=== PATIENT | female | born 1970 | race Hispanic/Latino ===

== ENCOUNTER 2019-06-30 12:44 | Inpatient (IN) | payer BC, MEDICAID ==
[~2019-06-30] VITALS: Ht 152.4 cm; Wt 69.5 kg
[~2019-06-30 12:44] MED LIST: ENOX40DI8 SQ; LISI10TA PO; METF850T PO
[2019-06-30 14:10] VITALS: BP 145/66
[2019-06-30 14:42] LABS: BASOPHILS % (AUTO) 0.3 % (0.0-5.0); EOSINOPHILS % (AUTO) 0.6 % (0.0-8.0); HEMATOCRIT 34.8 % (36-48); MEAN CORPUSCULAR HGB CONC 33.3 g/dL (32.0-36.0); MEAN CORPUSCULAR VOLUME 81.1 fL (79-99); MONOCYTES % (AUTO) 5.8 % (3.0-13.0); PLATELET COUNT (AUTO) 338 K/uL (130-400); RED BLOOD CELL COUNT(AUTO) 4.29 MIL/uL (4.00-5.50); RED CELL DISTRIBUTION WIDTH 12.6 % (11.0-15.5); WHITE BLOOD COUNT (AUTO) 12.3 K/uL (4.8-10.8)
[2019-06-30] MEDS ORDERED: DEXTROSE 50%-WATER 50 ML DISP.SYRIN IV PRN (14:45)
[2019-06-30] MEDS ORDERED: LACTULOSE 20 GM/30 ML UDCUP PO PRN (14:45)
[2019-06-30] MEDS ORDERED: MAG HYDROX/AL HYDROX/SIMETH ES 30 ML SUSP UDCUP PO PRN (14:45)
[2019-06-30] MEDS ORDERED: POTASSIUM CHLORIDE 20MEQ/100ML 100 ML IV PRN (14:45)
[2019-06-30] MEDS ORDERED: ONDANSETRON HCL 4 MG/2 ML VIAL IVP PRN (14:45)
[2019-06-30] MEDS ORDERED: DiphenhydrAMINE HCL 50 MG/ML VIAL IVP PRN (14:45)
[2019-06-30] MEDS ORDERED: POTASSIUM CHLORIDE 10% ELIXIR 20 MEQ/15 ML UDCUP PO PRN (14:45)
[2019-06-30] MEDS ORDERED: SODIUM CHLORIDE 0.9% 10 ML VIAL IVP SCH (14:45)
[2019-06-30] MEDS ORDERED: ZOLPIDEM TARTRATE 5 MG TAB PO PRN (14:45)
[2019-06-30] MEDS ORDERED: GUAIFENESIN SUGAR-FREE 100 MG/5 ML UDCUP PO PRN (14:45)
[2019-06-30] MEDS ORDERED: NITROGLYCERIN 0.4 MG SL TAB SL PRN (14:45)
[2019-06-30] MEDS ORDERED: GUAIFENESIN-DM 200/20 MG 10 ML PO PRN (14:45)
[2019-06-30] MEDS ORDERED: LIDOCAINE HCL-MPF 1% 2ML VIAL IJ PRN (14:45)
[2019-06-30] MEDS ORDERED: GLUCAGON 1MG KIT 1 MG ML IM PRN (14:45)
[2019-06-30] MEDS ORDERED: ACETAMINOPHEN 325 MG TAB PO PRN (14:45)
[2019-06-30] MEDS ORDERED: DIPHENHYDRAMINE HCL 25 MG CAPSULE PO PRN (14:45)
[2019-06-30 16:00] VITALS: BP 178/82
[2019-06-30] MEDS ORDERED: INSULIN R PO SSI SQ SCH (16:30)
--- NOTE | 2019-06-30 17:30 | NUR ---
REGULAR INSULIN Administered 18 units of subcutaneous regular insulin to left triceps due to blood sugar level 485mg/dL. Lab draw recheck 514mg/dL. Dr. Cortes made aware and sliding scale increased from SS # 1 to SS # 2 and administered at this time insulin regular per new scale # 2. Patient having dinner.
[2019-06-30 17:40] LABS: CREATININE 1.4 mg/dL (0.5-1.5); POTASSIUM 5.1 mmol/L (3.5-5.1)
[2019-06-30 20:00] VITALS: BP 162/83
--- NOTE | 2019-06-30 20:15 | NUR ---
AJ GEOPHYSICAL LABORATORY DIRECTOR AWARE OF PT'S STATUS AND MOST RECENT GLUCOSE
[2019-06-30] MEDS: INSULIN HUMULIN R 100 UNIT/ML 3ML SQ SCH (20:42)
[2019-06-30] MEDS ORDERED: ASPI-1026 PO (22:07)
[2019-06-30] MEDS ORDERED: metoprolol (22:07)
[2019-06-30] MEDS ORDERED: CLOP75TA14 PO (22:07)
[2019-06-30] MEDS ORDERED: ATOR40TA71 PO (22:07)
[2019-06-30] MEDS ORDERED: metoprolol er PO (22:07)
--- NOTE | 2019-06-30 22:10 | NUR ---
BELLHOP CAPTAIN, AJ AWARE THAT THERE ARE STILL NO ORDERS FOR ANTIBIOTICS PREVIOUSLY PLANEED BY DR. PEÑA ON HIS HISTORY AND PHYSIAL NOTE. AND THAT HOME MEDICATIONS ARE IN TO BE REVIEWED .
[2019-06-30] MEDS ORDERED: VANCOMYCIN PROTOCOL PER PHARMACY IV SCH (22:15)
[2019-06-30 23:47] VITALS: BP 131/72
[2019-07-01] VITALS (24 sets, daily range): BP systolic 103–173; BP diastolic 47–86
[2019-07-01] MEDS: ZOSYN 3.375GM+NS 50ML 50 ML IV SCH ×4 (01:39→17:30)
[2019-07-01 05:57] LABS: BASOPHILS % (AUTO) 0.3 % (0.0-5.0); EOSINOPHILS % (AUTO) 0.7 % (0.0-8.0); HEMATOCRIT 32.2 % (36-48); LYMPHOCYTES % (AUTO) 18.9 % (21.0-51.0); MEAN CORPUSCULAR HEMOGLOBIN 27.3 pg (27.0-33.0); MEAN CORPUSCULAR HGB CONC 33.5 g/dL (32.0-36.0); MEAN CORPUSCULAR VOLUME 81.5 fL (79-99); MONOCYTES % (AUTO) 6.5 % (3.0-13.0); NEUTROPHILS % (AUTO) 73.1 % (40.0-77.0); PLATELET COUNT (AUTO) 318 K/uL (130-400); RED BLOOD CELL COUNT(AUTO) 3.95 MIL/uL (4.00-5.50); RED CELL DISTRIBUTION WIDTH 12.6 % (11.0-15.5); WHITE BLOOD COUNT (AUTO) 15.3 K/uL (4.8-10.8)
[2019-07-01] MEDS: INSULIN HUMULIN R 100 UNIT/ML 3ML SQ SCH ×4 (06:10→20:38)
[2019-07-01 06:14] LABS: BILIRUBIN,TOTAL 0.3 mg/dL (0.2-1.0); CREATININE 1.2 mg/dL (0.5-1.5); TOTAL PROTEIN, SERUM 7.6 g/dL (6.0-8.3)
--- NOTE | 2019-07-01 07:00 | NUR ---
DR. RESENDIZ AWARE THAT PATIENT IS ON PLAVIX AT HOME AND ASPIRIN 325 MG DAILY AND LAST NIGHT DOSE PE PATIENT WAS 2/18 AM. STATED IT WAS OK TO PROCEED W SX.
[2019-07-01] MEDS: VANCOMYCIN 1GM+NS 250ML 250 ML IV SCH (07:15)
[2019-07-01] MEDS ORDERED: INSULIN GLARGINE 100 UNITS/ML 10 ML VIAL SQ SCH (09:00)
[2019-07-01] MEDS: ENOXAPARIN SODIUM 30 MG/0.3 ML SQ SCH (09:00)
--- NOTE | 2019-07-01 09:00 | NUR ---
DYSPHAGIA EVAL COMPLETED. -S/S OF ASPIRATION. RECOMMEND REGULAR TEXTURE, THIN LIQUIDS; PILLS WHOLE WITH LIQUIDS. Addendum: 07/01/19 at 1202 by GERMÁN APONTE, [facility] Amended: Links added.
--- NOTE | 2019-07-01 14:58 | NUR ---
INITIAL SW met with patient. Patient lives with spouse, Cristofer Correa, [phone]. No home services. DME: BPM, glucometer (uses insulin), shower chair, wheelchair, cane, standard walker. Patient is able to complete ADL's independently but does not drive. PCP is Dr. Hernandez Marquez. Pharmacy is [facility] located on [facility] in [place]. DCP is home. Addendum: 07/01/19 at 1500 by LUCIA ORDOÑEZ SS Amended: Links added.
[2019-07-01] MEDS ORDERED: DIPH,PERTUSS(ACELL),TET VAC/PF 0.5 ML VIAL IM ONE (15:30)
[2019-07-01] MEDS ORDERED: LIDOCAINE HCL 1% 20 ML VIAL ONE (16:52)
[2019-07-01] MEDS ORDERED: BUPIVACAINE/PF 0.5% 30ML VIAL ONE (16:52)
[2019-07-01] MEDS ORDERED: PROPOFOL 10 MG/ML 20ML VIAL IV ONE (17:47)
[2019-07-01] MEDS ORDERED: FENTANYL CITRATE PF 50 MCG/1 ML 2ML VIAL ONE (17:47)
[2019-07-01] MEDS ORDERED: MIDAZOLAM HCL 1 MG/ML 2ML VIAL ONE (17:47)
[2019-07-02] VITALS (7 sets, daily range): BP systolic 117–153; BP diastolic 54–79
[2019-07-02 05:08] LABS: BASOPHILS % (AUTO) 0.3 % (0.0-5.0); EOSINOPHILS % (AUTO) 0.8 % (0.0-8.0); HEMATOCRIT 34.5 % (36-48); LYMPHOCYTES % (AUTO) 21.7 % (21.0-51.0); MEAN CORPUSCULAR HEMOGLOBIN 27.3 pg (27.0-33.0); MEAN CORPUSCULAR HGB CONC 32.5 g/dL (32.0-36.0); MEAN CORPUSCULAR VOLUME 83.9 fL (79-99); MONOCYTES % (AUTO) 8.4 % (3.0-13.0); NEUTROPHILS % (AUTO) 68.4 % (40.0-77.0); PLATELET COUNT (AUTO) 297 K/uL (130-400); RED BLOOD CELL COUNT(AUTO) 4.11 MIL/uL (4.00-5.50); RED CELL DISTRIBUTION WIDTH 12.8 % (11.0-15.5); WHITE BLOOD COUNT (AUTO) 10.7 K/uL (4.8-10.8)
[2019-07-02 05:42] LABS: ALBUMIN 2.6 g/dL (3.5-5.0); BILIRUBIN,TOTAL 0.3 mg/dL (0.2-1.0); CREATININE 1.1 mg/dL (0.5-1.5); POTASSIUM 4.3 mmol/L (3.5-5.1); TOTAL PROTEIN, SERUM 6.9 g/dL (6.0-8.3)
[2019-07-02] MEDS: VANCOMYCIN 1GM+NS 250ML 250 ML IV SCH (06:44)
[2019-07-02] MEDS: INSULIN HUMULIN R 100 UNIT/ML 3ML SQ SCH (06:49)
[2019-07-02] MEDS ORDERED: INSULIN GLARGINE 100 UNITS/ML 10 ML VIAL SQ SCH (09:00)
[2019-07-02] MEDS: LISINOPRIL 10 MG TABLET PO SCH (09:05)
[2019-07-02] MEDS: METOPROLOL SUCCINATE 50 MG TAB.SR.24H PO SCH (09:05)
[2019-07-02] MEDS: ENOXAPARIN SODIUM 30 MG/0.3 ML SQ SCH (09:05)
[2019-07-02] MEDS: ASPIRIN 325 MG TABLET PO SCH (09:06)
[2019-07-02] MEDS: ZOSYN 3.375GM+NS 50ML 50 ML IV SCH ×3 (09:06→16:52)
[2019-07-02] MEDS: CLOPIDOGREL BISULFATE 75 MG TAB PO SCH (09:06)
[2019-07-02] MEDS: INSULIN GLARGINE 100 UNITS/ML 10 ML VIAL SQ SCH (09:15)
[2019-07-02] MEDS: INSULIN LISPRO 100 UNIT/ML 3ML SQ SCH ×5 (11:53→22:19)
--- NOTE | 2019-07-02 15:44 | NUR ---
SNF Referral MD order for SNF. SW met with patient and provided list of SNF's in network with her insurance. AMY/Choice signed for [facility], AMY/Choice placed in chart. Referral sent. Pending eval and insurance authorization. SW contacted Jillian Alfaro, [employer] Rough[employer] for [facility] and informed of referral.
[2019-07-02] MEDS: ACETAMINOPHEN 325 MG TAB PO PRN (22:11)
[2019-07-02] MEDS: ATORVASTATIN CALCIUM 40 MG TABLET PO SCH (22:11)
[2019-07-03] VITALS: BP 142/72
[2019-07-03] MEDS: ZOSYN 3.375GM+NS 50ML 50 ML IV SCH ×3 (01:36→18:04)
[2019-07-03 04:00] VITALS: BP 142/71
[2019-07-03 06:00] LABS: BASOPHILS % (AUTO) 0.1 % (0.0-5.0); EOSINOPHILS % (AUTO) 0.5 % (0.0-8.0); HEMATOCRIT 29.8 % (36-48); LYMPHOCYTES % (AUTO) 13.8 % (21.0-51.0); MEAN CORPUSCULAR HEMOGLOBIN 27.6 pg (27.0-33.0); MEAN CORPUSCULAR HGB CONC 32.9 g/dL (32.0-36.0); MEAN CORPUSCULAR VOLUME 83.9 fL (79-99); MONOCYTES % (AUTO) 10.7 % (3.0-13.0); NEUTROPHILS % (AUTO) 74.3 % (40.0-77.0); PLATELET COUNT (AUTO) 250 K/uL (130-400); RED BLOOD CELL COUNT(AUTO) 3.55 MIL/uL (4.00-5.50); RED CELL DISTRIBUTION WIDTH 12.9 % (11.0-15.5); WHITE BLOOD COUNT (AUTO) 14.9 K/uL (4.8-10.8)
[2019-07-03 06:11] LABS: ALBUMIN 2.5 g/dL (3.5-5.0); BILIRUBIN,TOTAL 0.6 mg/dL (0.2-1.0); CREATININE 1.2 mg/dL (0.5-1.5); CRP QUANTITATIVE 74.7 mg/L (0.00-9.0); MAGNESIUM 1.7 mg/dL (1.80-2.40); POTASSIUM 4.4 mmol/L (3.5-5.1); TOTAL PROTEIN, SERUM 6.6 g/dL (6.0-8.3)
[2019-07-03 06:28] LABS: HEMOGLOBIN A1C 15.3 % (4.0-6.0)
[2019-07-03] MEDS: INSULIN LISPRO 100 UNIT/ML 3ML SQ SCH ×6 (06:46→18:11)
[2019-07-03] MEDS: VANCOMYCIN 1GM+NS 250ML 250 ML IV SCH (06:47)
[2019-07-03 07:21] LABS: ERYTHROCYTE SEDIMENTATION RATE 76 MM/HR (0-30)
[2019-07-03 08:00] VITALS: BP 146/65
[2019-07-03] MEDS: ASPIRIN 325 MG TABLET PO SCH (08:38)
[2019-07-03] MEDS: LISINOPRIL 10 MG TABLET PO SCH (08:38)
[2019-07-03] MEDS: CLOPIDOGREL BISULFATE 75 MG TAB PO SCH (08:38)
[2019-07-03] MEDS: METOPROLOL SUCCINATE 50 MG TAB.SR.24H PO SCH (08:38)
[2019-07-03] MEDS: ENOXAPARIN SODIUM 30 MG/0.3 ML SQ SCH (08:39)
[2019-07-03] MEDS: INSULIN GLARGINE 100 UNITS/ML 10 ML VIAL SQ SCH (08:47)
--- NOTE | 2019-07-03 10:42 | NUR ---
CM Note: [employer]hell pending approval CM spoke to Jillian Marsh. Pt pending approval. Primary nurse aware. EMS arranged and faxed for today in case pt receive auth, primary nurse to call [facility]. CM to cont to follow up. Addendum: 07/03/19 at 1047 by NIKI SHAH LVN CM entered in error.
--- NOTE | 2019-07-03 10:46 | NUR ---
CM Note: Lashell pending approval CM spoke to Jillian w/[employer]. Pt pending approval at this time. Pt safe to transfe via transport van once approved. Primary nurse aware. CM to cont to follow up.
[2019-07-03 12:00] VITALS: BP 132/67
[2019-07-03 16:00] VITALS: BP 157/80
[2019-07-03 20:45] VITALS: BP 160/78
[2019-07-03] MEDS: ATORVASTATIN CALCIUM 40 MG TABLET PO SCH (22:03)
[2019-07-03] MEDS: INSULIN HUMULIN R 100 UNIT/ML 3ML SQ SCH (22:08)
[2019-07-04] VITALS (7 sets, daily range): BP systolic 116–150; BP diastolic 48–86
[2019-07-04 05:24] LABS: BASOPHILS % (AUTO) 0.2 % (0.0-5.0); EOSINOPHILS % (AUTO) 1.2 % (0.0-8.0); HEMATOCRIT 27.1 % (36-48); LYMPHOCYTES % (AUTO) 23.6 % (21.0-51.0); MEAN CORPUSCULAR HEMOGLOBIN 27.3 pg (27.0-33.0); MEAN CORPUSCULAR HGB CONC 32.5 g/dL (32.0-36.0); MEAN CORPUSCULAR VOLUME 84.2 fL (79-99); MONOCYTES % (AUTO) 10.4 % (3.0-13.0); NEUTROPHILS % (AUTO) 64.2 % (40.0-77.0); PLATELET COUNT (AUTO) 211 K/uL (130-400); RED BLOOD CELL COUNT(AUTO) 3.22 MIL/uL (4.00-5.50); RED CELL DISTRIBUTION WIDTH 12.8 % (11.0-15.5); WHITE BLOOD COUNT (AUTO) 13.3 K/uL (4.8-10.8)
[2019-07-04 05:35] LABS: CREATININE 1.1 mg/dL (0.5-1.5); POTASSIUM 3.6 mmol/L (3.5-5.1)
[2019-07-04] MEDS: INSULIN HUMULIN R 100 UNIT/ML 3ML SQ SCH ×4 (06:03→22:40)
[2019-07-04] MEDS: VANCOMYCIN 1GM+NS 250ML 250 ML IV SCH ×2 (06:15→22:37)
[2019-07-04] MEDS: INSULIN LISPRO 100 UNIT/ML 3ML SQ SCH ×3 (09:24→16:53)
[2019-07-04] MEDS: INSULIN GLARGINE 100 UNITS/ML 10 ML VIAL SQ SCH (09:25)
[2019-07-04] MEDS: METOPROLOL SUCCINATE 50 MG TAB.SR.24H PO SCH (09:26)
[2019-07-04] MEDS: CLOPIDOGREL BISULFATE 75 MG TAB PO SCH (09:26)
[2019-07-04] MEDS: ASPIRIN 325 MG TABLET PO SCH (09:26)
[2019-07-04] MEDS: ZOSYN 3.375GM+NS 50ML 50 ML IV SCH ×3 (09:35→16:51)
[2019-07-04] MEDS: LISINOPRIL 10 MG TABLET PO SCH (09:36)
[2019-07-04] MEDS: ENOXAPARIN SODIUM 30 MG/0.3 ML SQ SCH (16:57)
[2019-07-04] MEDS: ATORVASTATIN CALCIUM 40 MG TABLET PO SCH (22:37)
[2019-07-05 04:33] VITALS: BP 153/74
[2019-07-05] MEDS: INSULIN HUMULIN R 100 UNIT/ML 3ML SQ SCH ×4 (05:22→22:46)
[2019-07-05] MEDS: ZOSYN 3.375GM+NS 50ML 50 ML IV SCH ×2 (05:24→14:31)
[2019-07-05 05:52] LABS: HEMATOCRIT 27.2 % (36-48); MEAN CORPUSCULAR HEMOGLOBIN 27.4 pg (27.0-33.0); MEAN CORPUSCULAR HGB CONC 32.7 g/dL (32.0-36.0); MEAN CORPUSCULAR VOLUME 83.7 fL (79-99); PLATELET COUNT (AUTO) 241 K/uL (130-400); RED BLOOD CELL COUNT(AUTO) 3.25 MIL/uL (4.00-5.50); RED CELL DISTRIBUTION WIDTH 12.7 % (11.0-15.5); WHITE BLOOD COUNT (AUTO) 12.7 K/uL (4.8-10.8)
[2019-07-05 06:04] LABS: EOSINOPHILS % (MANUAL) 4 % (1-6); LYMPHOCYTES % (MANUAL) 20 % (22-44); MAN.DIFF COMMENT-IMPRESSION MANUAL DIFFERENTIAL; MONOCYTES % (MANUAL) 12 % (2-9); PLATELET MORPHOLOGY COMMENT ADEQUATE; SEGMENTED NEUTROPHILS % 64 % (40-70)
[2019-07-05 06:20] LABS: POTASSIUM 3.5 mmol/L (3.5-5.1)
[2019-07-05] MEDS: INSULIN LISPRO 100 UNIT/ML 3ML SQ SCH ×3 (07:30→17:14)
[2019-07-05 08:06] VITALS: BP 141/69
[2019-07-05] MEDS: VANCOMYCIN 1GM+NS 250ML 250 ML IV SCH ×2 (09:01→22:45)
[2019-07-05] MEDS: LISINOPRIL 10 MG TABLET PO SCH (09:02)
[2019-07-05] MEDS: ASPIRIN 325 MG TABLET PO SCH (09:02)
[2019-07-05] MEDS: CLOPIDOGREL BISULFATE 75 MG TAB PO SCH (09:02)
[2019-07-05] MEDS: METOPROLOL SUCCINATE 50 MG TAB.SR.24H PO SCH (09:03)
[2019-07-05] MEDS: ENOXAPARIN SODIUM 30 MG/0.3 ML SQ SCH (09:04)
[2019-07-05] MEDS: INSULIN GLARGINE 100 UNITS/ML 10 ML VIAL SQ SCH (09:08)
[2019-07-05 11:43] VITALS: BP 148/71
[2019-07-05 16:33] VITALS: BP 145/75
[2019-07-05 20:37] VITALS: BP 135/99
[2019-07-05] MEDS: ATORVASTATIN CALCIUM 40 MG TABLET PO SCH (22:45)
[2019-07-06] VITALS (7 sets, daily range): BP systolic 136–177; BP diastolic 62–80
[2019-07-06] MEDS: ZOSYN 3.375GM+NS 50ML 50 ML IV SCH ×4 (01:33→21:06)
[2019-07-06 05:37] LABS: BASOPHILS % (AUTO) 0.2 % (0.0-5.0); EOSINOPHILS % (AUTO) 2.1 % (0.0-8.0); HEMATOCRIT 26.3 % (36-48); LYMPHOCYTES % (AUTO) 21.4 % (21.0-51.0); MEAN CORPUSCULAR HEMOGLOBIN 27.3 pg (27.0-33.0); MEAN CORPUSCULAR HGB CONC 32.3 g/dL (32.0-36.0); MEAN CORPUSCULAR VOLUME 84.6 fL (79-99); NEUTROPHILS % (AUTO) 64.9 % (40.0-77.0); PLATELET COUNT (AUTO) 251 K/uL (130-400); RED BLOOD CELL COUNT(AUTO) 3.11 MIL/uL (4.00-5.50); RED CELL DISTRIBUTION WIDTH 12.8 % (11.0-15.5); WHITE BLOOD COUNT (AUTO) 12.3 K/uL (4.8-10.8)
[2019-07-06] MEDS: INSULIN HUMULIN R 100 UNIT/ML 3ML SQ SCH ×4 (05:40→21:07)
[2019-07-06 05:59] LABS: CREATININE 1.1 mg/dL (0.5-1.5); POTASSIUM 3.6 mmol/L (3.5-5.1)
[2019-07-06] MEDS: INSULIN LISPRO 100 UNIT/ML 3ML SQ SCH ×3 (07:25→16:57)
[2019-07-06] MEDS: VANCOMYCIN 1GM+NS 250ML 250 ML IV SCH ×3 (07:39→23:05)
[2019-07-06] MEDS: ASPIRIN 325 MG TABLET PO SCH (07:39)
[2019-07-06] MEDS: CLOPIDOGREL BISULFATE 75 MG TAB PO SCH (07:40)
[2019-07-06] MEDS: LISINOPRIL 10 MG TABLET PO SCH (07:40)
[2019-07-06] MEDS: METOPROLOL SUCCINATE 50 MG TAB.SR.24H PO SCH (07:40)
[2019-07-06] MEDS: ENOXAPARIN SODIUM 30 MG/0.3 ML SQ SCH (07:42)
[2019-07-06] MEDS: INSULIN GLARGINE 100 UNITS/ML 10 ML VIAL SQ SCH (07:44)
--- NOTE | 2019-07-06 08:00 | NUR ---
PT AAO X 3 REVIEW PLAN OF CARE / PT LEFT FOOT SURGERY ,DRSG DRY AND CLEAN,, HX OF HAVING A RT BELOW KNEE AMPUTATION . CALL LIGHT IN REACH.
--- NOTE | 2019-07-06 08:40 | NUR ---
VANCO TROUGH OF 22.9 FAX TO [facility] . OF RESULTS AND CALLED DEPT FOR CONFIRM FAX
--- NOTE | 2019-07-06 12:01 | NUR ---
cm note spoke to [facility] with [facility] states will call back. still pending approval
[2019-07-06] MEDS: ATORVASTATIN CALCIUM 40 MG TABLET PO SCH (21:09)
[2019-07-07 00:52] VITALS: BP 142/76
[2019-07-07 04:06] VITALS: BP 126/75
[2019-07-07 05:36] LABS: BASOPHILS % (AUTO) 0.3 % (0.0-5.0); EOSINOPHILS % (AUTO) 1.9 % (0.0-8.0); HEMATOCRIT 25.6 % (36-48); LYMPHOCYTES % (AUTO) 21.3 % (21.0-51.0); MEAN CORPUSCULAR HEMOGLOBIN 27.2 pg (27.0-33.0); MEAN CORPUSCULAR VOLUME 84.8 fL (79-99); MONOCYTES % (AUTO) 9.5 % (3.0-13.0); NEUTROPHILS % (AUTO) 66.7 % (40.0-77.0); PLATELET COUNT (AUTO) 259 K/uL (130-400); RED BLOOD CELL COUNT(AUTO) 3.02 MIL/uL (4.00-5.50); RED CELL DISTRIBUTION WIDTH 12.8 % (11.0-15.5); WHITE BLOOD COUNT (AUTO) 11.6 K/uL (4.8-10.8)
[2019-07-07 05:59] LABS: POTASSIUM 3.5 mmol/L (3.5-5.1)
[2019-07-07] MEDS: ZOSYN 3.375GM+NS 50ML 50 ML IV SCH ×2 (06:19→15:39)
[2019-07-07 06:39] LABS: CREATININE 1.1 mg/dL (0.5-1.5)
[2019-07-07] MEDS: INSULIN HUMULIN R 100 UNIT/ML 3ML SQ SCH ×4 (06:43→20:57)
[2019-07-07] MEDS ORDERED: COMPOUND IV REFRIGERATED 1 EACH IVSOLN MISC PRN (07:15)
[2019-07-07] MEDS: INSULIN LISPRO 100 UNIT/ML 3ML SQ SCH ×3 (07:30→17:00)
[2019-07-07 08:00] VITALS: BP 143/69
[2019-07-07] MEDS: ASPIRIN 325 MG TABLET PO SCH (10:04)
[2019-07-07] MEDS: METOPROLOL SUCCINATE 50 MG TAB.SR.24H PO SCH (10:04)
[2019-07-07] MEDS: CLOPIDOGREL BISULFATE 75 MG TAB PO SCH (10:04)
[2019-07-07] MEDS: LISINOPRIL 10 MG TABLET PO SCH (10:04)
[2019-07-07] MEDS: ENOXAPARIN SODIUM 30 MG/0.3 ML SQ SCH (10:05)
[2019-07-07] MEDS: INSULIN GLARGINE 100 UNITS/ML 10 ML VIAL SQ SCH (10:27)
[2019-07-07] MEDS: VANCOMYCIN 750MG + NS 250 ML IV SCH ×4 (10:33→22:07)
[2019-07-07 12:00] VITALS: BP 136/61
--- NOTE | 2019-07-07 13:56 | NUR ---
CM NOTE PER MARYJANE, DOES NOT HAVE ISO ROOM. INFORMED PATIENT, PER PATIENT, IS FROM [place] AND WOULD LIKE A SNF IN [place]. AMY VERBAL CONSENT FOR [facility]. CLINICALS AND PASRR FAXED TO [facility]. PER PLASTIC JIG AND FIXTURE BUILDER, RAMIRO REYEZ IS FACILITY ADMISSION COORDINATOR. LEFT MY NAME AND NUMBER AND ASKED FOR RAMIRO TO RETURN MY CALL FOR SNF REFERRAL. PENDING CALLBACK.
[2019-07-07 14:03] LABS: INR 1.02 (0.85-1.15); PROTHROMBIN TIME 10.7 SEC (9.6-11.6)
--- NOTE | 2019-07-07 15:31 | NUR ---
CM NOTE RAMIRO REYEZ CALLED AGAIN [phone] REGARDING PENDING REFERRAL FOR SNF. NO ANSWER, LEFT AGAIN. WILL FOLLOW UP ACCORDINGLY.
[2019-07-07] MEDS: POTASSIUM CHLORIDE 20 MEQ ERTAB PO PRN (15:38)
[2019-07-07 16:00] VITALS: BP 151/83
--- NOTE | 2019-07-07 16:55 | NUR ---
CM NOTE 3RD ATTEMPT FOR RAMIRO REYEZ, ADMISSION COORDINATOR AT [facility], NO ANSWER, VOICEMAIL LEFT REGARDING PENDING SNF REFERRAL FOR IV ABT AND PT. WILL FOLLOW UP ACCORDINGLY.
[2019-07-07] MEDS: CEFTRIAXONE SODIUM 1 GM IVP SCH (17:12)
[2019-07-07] MEDS: ATORVASTATIN CALCIUM 40 MG TABLET PO SCH (20:55)
[2019-07-07 21:24] VITALS: BP 156/74
[2019-07-08 00:49] VITALS: BP 144/67
[2019-07-08] MEDS: CEFTRIAXONE SODIUM 1 GM IVP SCH ×2 (04:00→17:19)
[2019-07-08 04:15] VITALS: BP 148/70
[2019-07-08] MEDS: INSULIN LISPRO 100 UNIT/ML 3ML SQ SCH ×3 (07:30→17:00)
[2019-07-08] MEDS: INSULIN HUMULIN R 100 UNIT/ML 3ML SQ SCH ×4 (07:30→21:00)
[2019-07-08 08:00] VITALS: BP 180/75
[2019-07-08] MEDS: INSULIN GLARGINE 100 UNITS/ML 10 ML VIAL SQ SCH (09:00)
--- NOTE | 2019-07-08 09:00 | NUR ---
CM NOTE RAMIRO REYEZ CALLED AT [phone], NO ANSWER, VOICEMAIL LEFT REGARDING PENDING SNF REFERRAL. WILL FOLLOW UP ACCORDINGLY.
[2019-07-08] MEDS: ASPIRIN 325 MG TABLET PO SCH (11:25)
[2019-07-08] MEDS: LISINOPRIL 10 MG TABLET PO SCH (11:25)
[2019-07-08] MEDS: CLOPIDOGREL BISULFATE 75 MG TAB PO SCH (11:25)
[2019-07-08] MEDS: METOPROLOL SUCCINATE 50 MG TAB.SR.24H PO SCH (11:26)
[2019-07-08] MEDS: ENOXAPARIN SODIUM 30 MG/0.3 ML SQ SCH (11:28)
[2019-07-08 12:00] VITALS: BP 178/81
--- NOTE | 2019-07-08 12:10 | NUR ---
CM NOTE 5TH ATTEMPT AT SPEAKING WITH ADMISSION COORDINATOR. ASKED TO SPEAK TO ADMINISTRATION, PER PRECISION LENS POLISHER, OUT TO LUNCH. INFORMATION GIVEN TO CALL BACK. WILL FOLLOW UP ACCORDINGLY.
[2019-07-08 16:00] VITALS: BP 166/77
--- NOTE | 2019-07-08 16:44 | NUR ---
CM NOTE [facility] ADMISSION COORDINATOR, CALLED BACK. PER FRANCISCO, WILL CALL ME BACK WITH CORRECT FAX NUMBER TO FAX CLINICALS. PER REP, CLINICALS FAXED YESTERDAY NOT RECEIVED.
--- NOTE | 2019-07-08 17:06 | NUR ---
CM NOTE CLINICALS REFAXED TO , CORRECT FAX NUMBER PER FRANCISCO. PENDING CONFIRMATION
[2019-07-08 20:00] VITALS: BP 162/77
[2019-07-08] MEDS: VANCOMYCIN 1GM+NS 250ML 250 ML IV SCH (21:40)
[2019-07-08] MEDS: ATORVASTATIN CALCIUM 40 MG TABLET PO SCH (21:40)
[2019-07-08] MEDS: CLONIDINE HCL 0.1 MG TABLET PO PRN (21:56)
[2019-07-09] VITALS (7 sets, daily range): BP systolic 130–155; BP diastolic 61–75
[2019-07-09] MEDS: CEFTRIAXONE SODIUM 1 GM IVP SCH ×2 (05:10→16:38)
[2019-07-09 05:14] LABS: BASOPHILS % (AUTO) 0.4 % (0.0-5.0); EOSINOPHILS % (AUTO) 1.6 % (0.0-8.0); HEMATOCRIT 26.7 % (36-48); LYMPHOCYTES % (AUTO) 19.7 % (21.0-51.0); MEAN CORPUSCULAR HEMOGLOBIN 27.1 pg (27.0-33.0); MEAN CORPUSCULAR HGB CONC 31.5 g/dL (32.0-36.0); MEAN CORPUSCULAR VOLUME 86.1 fL (79-99); MONOCYTES % (AUTO) 8.8 % (3.0-13.0); NEUTROPHILS % (AUTO) 69.2 % (40.0-77.0); PLATELET COUNT (AUTO) 261 K/uL (130-400); RED CELL DISTRIBUTION WIDTH 12.8 % (11.0-15.5); WHITE BLOOD COUNT (AUTO) 10.4 K/uL (4.8-10.8)
[2019-07-09 05:28] LABS: CREATININE 1.2 mg/dL (0.5-1.5); MAGNESIUM 1.7 mg/dL (1.80-2.40); POTASSIUM 3.8 mmol/L (3.5-5.1)
[2019-07-09] MEDS: INSULIN LISPRO 100 UNIT/ML 3ML SQ SCH ×3 (06:58→16:36)
[2019-07-09] MEDS: INSULIN HUMULIN R 100 UNIT/ML 3ML SQ SCH ×4 (07:02→19:43)
[2019-07-09] MEDS: INSULIN GLARGINE 100 UNITS/ML 10 ML VIAL SQ SCH (09:00)
--- NOTE | 2019-07-09 10:14 | NUR ---
DASHAWN NOTE ATTEMPTED TO CALL FRANCISCO [phone] REGARDING SNF REFERRAL, NO ANSWER. VOICEMAIL LEFT, PENDING CALL BACK. WILL FOLLOW UP ACCORDINGLY.
[2019-07-09] MEDS: ASPIRIN 325 MG TABLET PO SCH (12:11)
[2019-07-09] MEDS: CLOPIDOGREL BISULFATE 75 MG TAB PO SCH (12:11)
[2019-07-09] MEDS: LISINOPRIL 10 MG TABLET PO SCH (12:12)
[2019-07-09] MEDS: METOPROLOL SUCCINATE 50 MG TAB.SR.24H PO SCH (12:12)
[2019-07-09] MEDS: ENOXAPARIN SODIUM 30 MG/0.3 ML SQ SCH (12:15)
--- NOTE | 2019-07-09 13:13 | NUR ---
CM NOTE PER SHARMAINE GIL DRIFTMAN, CLINICALS AND PASRR RECEIVED AND CLINICALS SUBMITTED TO INSURANCE, PENDING AUTHORIZATION. WILL FOLLOW UP ACCORDINGLY.
--- NOTE | 2019-07-09 18:01 | NUR ---
Nutrition Intervention: Nutrition screen based on LOS x 9 days. Pt. S/P Tracy. left heel/left foot great toe amputation(07/01/2019). Pt. on 60gm CCD diet with good p.o. intake, as per pt. Labs reviewed(Alb 2.5, BG 268, HgbA1c 15.3%). SR-20, left heel ulcer. Pt. with 1+ edema to LLE. LBM: 07/09/2019. BMI: 31.7, Obesity Grade 1. Pt. educated on Diabetic diet and provided with education material. Pt. verbalized understanding. Recommendations: 1) Rec. 60gm CCD Heart Healthy diet. 2) Rec. 30ml ProMod BID with B'fast and dinner meals. 3) Rec. 500mg Vit C BID and 220mg Zn sulfate QD to help promote wound healing. 4) Diabetic diet education given to patient. 5) Continue to monitor pt's nutritional status. 6) Consult RD as nutrition concerns arise. Addendum: 07/09/19 at [address] Amended: Links added.
[2019-07-09] MEDS: ATORVASTATIN CALCIUM 40 MG TABLET PO SCH (19:36)
[2019-07-09] MEDS: VANCOMYCIN 1GM+NS 250ML 250 ML IV SCH (19:42)
[2019-07-10 03:00] VITALS: BP 147/72
[2019-07-10] MEDS: CEFTRIAXONE SODIUM 1 GM IVP SCH ×2 (03:09→15:51)
[2019-07-10] MEDS: INSULIN LISPRO 100 UNIT/ML 3ML SQ SCH ×2 (05:45→12:15)
[2019-07-10] MEDS: INSULIN HUMULIN R 100 UNIT/ML 3ML SQ SCH ×3 (05:45→20:47)
[2019-07-10 07:57] VITALS: BP 190/80
[2019-07-10] MEDS: ASPIRIN 325 MG TABLET PO SCH (07:59)
[2019-07-10] MEDS: METOPROLOL SUCCINATE 50 MG TAB.SR.24H PO SCH (07:59)
[2019-07-10] MEDS: LISINOPRIL 10 MG TABLET PO SCH (08:00)
[2019-07-10] MEDS: CLOPIDOGREL BISULFATE 75 MG TAB PO SCH (08:00)
--- NOTE | 2019-07-10 08:00 | NUR ---
AM SHIFT ASSESSMENT, SITTING UP IN BED. NO C/O.
[2019-07-10] MEDS: ENOXAPARIN SODIUM 30 MG/0.3 ML SQ SCH (08:02)
[2019-07-10] MEDS: INSULIN GLARGINE 100 UNITS/ML 10 ML VIAL SQ SCH (08:10)
--- NOTE | 2019-07-10 10:00 | NUR ---
CM NOTE PENDING DR. RESENDIZ TO [facility]. CALLED DR. RESENDIZ TO SEE IF PHYSICAL THERAPY IS APPROPRIATE AND IF ABLE TO BEAR WEIGHT. NO ANSWER, MESSAGE LEFT. PENDING CALL BACK. DELEGATED TO GEE CAN, TO INQUIRE ABOUT PT AND WEIGHT BEARING STATUS ON PATIENT FROM DR. RESENDIZ. Addendum: 07/10/19 at 1744 by MONSERRAT PORTILLO RN CM ENTERED IN ERROR.
[2019-07-10 12:00] VITALS: BP 173/75
--- NOTE | 2019-07-10 15:00 | NUR ---
VISITING WITH FAMILY/FRIENDS, NO NEEDS ADDRESSED AT THIS TIME. DRESSING TO LT. FOOT INTACT, CLEAN AND DRY.
[2019-07-10 16:00] VITALS: BP 171/67
--- NOTE | 2019-07-10 17:00 | NUR ---
WILL BE GOING TO [facility] [place] [facility]CE READY TO DISCHARGED.
[2019-07-10] MEDS: VANCOMYCIN 1GM+NS 250ML 250 ML IV SCH (19:32)
[2019-07-10] MEDS: ATORVASTATIN CALCIUM 40 MG TABLET PO SCH (19:32)
[2019-07-10 20:58] VITALS: BP 164/73
[2019-07-11] VITALS: BP 155/70
[2019-07-11] MEDS: CEFTRIAXONE SODIUM 1 GM IVP SCH ×2 (03:53→16:46)
[2019-07-11 04:22] VITALS: BP 161/70
[2019-07-11] MEDS: INSULIN LISPRO 100 UNIT/ML 3ML SQ SCH ×3 (05:55→18:13)
[2019-07-11] MEDS: INSULIN HUMULIN R 100 UNIT/ML 3ML SQ SCH ×4 (05:56→20:22)
[2019-07-11 06:13] LABS: BASOPHILS % (AUTO) 0.2 % (0.0-5.0); EOSINOPHILS % (AUTO) 1.6 % (0.0-8.0); HEMATOCRIT 25.9 % (36-48); LYMPHOCYTES % (AUTO) 16.2 % (21.0-51.0); MEAN CORPUSCULAR HEMOGLOBIN 27.6 pg (27.0-33.0); MEAN CORPUSCULAR HGB CONC 32.4 g/dL (32.0-36.0); MEAN CORPUSCULAR VOLUME 85.2 fL (79-99); MONOCYTES % (AUTO) 8.8 % (3.0-13.0); NEUTROPHILS % (AUTO) 72.8 % (40.0-77.0); PLATELET COUNT (AUTO) 279 K/uL (130-400); RED BLOOD CELL COUNT(AUTO) 3.04 MIL/uL (4.00-5.50); RED CELL DISTRIBUTION WIDTH 12.9 % (11.0-15.5); WHITE BLOOD COUNT (AUTO) 10.5 K/uL (4.8-10.8)
[2019-07-11 06:22] LABS: MAGNESIUM 1.6 mg/dL (1.80-2.40); POTASSIUM 3.3 mmol/L (3.5-5.1)
[2019-07-11] MEDS: POTASSIUM CHLORIDE 20 MEQ ERTAB PO PRN ×2 (06:42→12:41)
[2019-07-11 08:00] VITALS: BP 163/80
[2019-07-11] MEDS ORDERED: MAGNESIUM 2GM PREMIX 50ML 50 ML IV SCH (08:00)
--- NOTE | 2019-07-11 09:35 | NUR ---
Jenks Glenshaw Spoke gurpreet Crespo this am to f/u on ins auth for admission. She mentions that it is still pending at this time. CM to f.u on Saturday.
[2019-07-11] MEDS: LISINOPRIL 10 MG TABLET PO SCH (10:10)
[2019-07-11] MEDS: ASPIRIN 325 MG TABLET PO SCH (10:10)
[2019-07-11] MEDS: METOPROLOL SUCCINATE 50 MG TAB.SR.24H PO SCH (10:11)
[2019-07-11] MEDS: ENOXAPARIN SODIUM 30 MG/0.3 ML SQ SCH (10:13)
[2019-07-11] MEDS: INSULIN GLARGINE 100 UNITS/ML 10 ML VIAL SQ SCH (10:14)
[2019-07-11] MEDS: CLOPIDOGREL BISULFATE 75 MG TAB PO SCH (10:16)
[2019-07-11 12:00] VITALS: BP 152/68
[2019-07-11 16:00] VITALS: BP 150/68
[2019-07-11] MEDS: ATORVASTATIN CALCIUM 40 MG TABLET PO SCH (19:45)
[2019-07-11 20:00] VITALS: BP 163/79
[2019-07-11] MEDS: VANCOMYCIN 1GM+NS 250ML 250 ML IV SCH (21:17)
[2019-07-12] VITALS: BP 147/73
[2019-07-12] MEDS: CEFTRIAXONE SODIUM 1 GM IVP SCH ×2 (03:52→15:51)
[2019-07-12 04:00] VITALS: BP 151/80
[2019-07-12] MEDS: INSULIN HUMULIN R 100 UNIT/ML 3ML SQ SCH ×4 (05:24→20:43)
[2019-07-12 06:46] LABS: MAGNESIUM 1.8 mg/dL (1.80-2.40); POTASSIUM 3.6 mmol/L (3.5-5.1)
[2019-07-12 08:00] VITALS: BP 158/72
[2019-07-12] MEDS: METOPROLOL SUCCINATE 50 MG TAB.SR.24H PO SCH (08:52)
[2019-07-12] MEDS: ASPIRIN 325 MG TABLET PO SCH (08:52)
[2019-07-12] MEDS: LISINOPRIL 10 MG TABLET PO SCH (08:53)
[2019-07-12] MEDS: CLOPIDOGREL BISULFATE 75 MG TAB PO SCH (08:53)
[2019-07-12] MEDS: ENOXAPARIN SODIUM 30 MG/0.3 ML SQ SCH (08:54)
[2019-07-12] MEDS: INSULIN LISPRO 100 UNIT/ML 3ML SQ SCH ×3 (08:55→17:02)
[2019-07-12] MEDS: INSULIN GLARGINE 100 UNITS/ML 10 ML VIAL SQ SCH (08:55)
[2019-07-12 11:26] VITALS: BP 179/90
[2019-07-12] MEDS: VANCOMYCIN 1GM+NS 250ML 250 ML IV SCH (15:51)
[2019-07-12 16:00] VITALS: BP 133/67
--- NOTE | 2019-07-12 19:00 | NUR ---
ASSUMED CARE Received report from Dustin Perry,Dressing to left foot dry and intact.Denies pain or discomfort.
[2019-07-12 19:30] VITALS: BP 158/76
[2019-07-12] MEDS: ATORVASTATIN CALCIUM 40 MG TABLET PO SCH (20:36)
[2019-07-12] MEDS: POTASSIUM CHLORIDE 20 MEQ ERTAB PO PRN (20:42)
[2019-07-13] VITALS (8 sets, daily range): BP systolic 147–180; BP diastolic 68–89
[2019-07-13] MEDS: CEFTRIAXONE SODIUM 1 GM IVP SCH ×2 (03:09→17:08)
[2019-07-13] MEDS: CLONIDINE HCL 0.1 MG TABLET PO PRN (03:45)
--- NOTE | 2019-07-13 03:47 | NUR ---
PRN Clonidine given for sys bp >160.
[2019-07-13] MEDS: INSULIN HUMULIN R 100 UNIT/ML 3ML SQ SCH ×4 (05:44→20:44)
[2019-07-13] MEDS: INSULIN LISPRO 100 UNIT/ML 3ML SQ SCH ×3 (06:27→17:09)
[2019-07-13] MEDS: AMLODIPINE BESYLATE 2.5 MG TAB PO SCH (08:44)
[2019-07-13] MEDS: CLOPIDOGREL BISULFATE 75 MG TAB PO SCH (08:44)
[2019-07-13] MEDS: METOPROLOL SUCCINATE 50 MG TAB.SR.24H PO SCH (08:44)
[2019-07-13] MEDS: ASPIRIN 325 MG TABLET PO SCH (08:44)
[2019-07-13] MEDS: LISINOPRIL 10 MG TABLET PO SCH (08:45)
[2019-07-13] MEDS: ENOXAPARIN SODIUM 30 MG/0.3 ML SQ SCH (08:45)
[2019-07-13] MEDS: INSULIN GLARGINE 100 UNITS/ML 10 ML VIAL SQ SCH (08:56)
[2019-07-13] MEDS ORDERED: PHARMACY COMMUNICATION MISC SCH (09:00)
[2019-07-13] MEDS: HONEY 1 APPL/ML TUBE TP SCH (09:00)
--- NOTE | 2019-07-13 10:35 | NUR ---
PT NOTE: PATIENT PERFORMED SUPINE EX'S IN ALL PLANES WITH EMPHASIS ON TRICEPS STRENGTHENING AND RESIDUAL LIMB STRENGTHENING. THIS IS IN ORDER TO PROMOTE IMPROVED BED MOBILITY AND POTENTIAL FOR SLIDING BOARD TRANSFERS OOB TO WHEEL CHAIR. PATIENT HAS BEEN TOLERATING SITTING AT EOB X10MIN + UE/LE STRENGTHENING. PATIENT WILL BENEFIT FROM CONTINUED PT TREATMENT PRIOR TO D/C HOME TO PROMOTE INCREASED STRENGTH AND FUNCTIONAL TRANSFERS OOB. Addendum: 07/13/19 at 1450 by ALMA NAVARRO PT Amended: Links added.
--- NOTE | 2019-07-13 11:00 | NUR ---
CM NOTE PER FRANCISCO [facility], PATIENT NOT IN NETWORK FOR SNF.
[2019-07-13] MEDS: VANCOMYCIN 1GM+NS 250ML 250 ML IV SCH (12:34)
--- NOTE | 2019-07-13 15:33 | NUR ---
CM NOTE NEW REFERRAL FOR INPATIENT REHAB OR CHOICE. AMY SIGNED FOR [facility]. CLINICALS FAXED AND RECEIVED. MIRANDA, PATIENT REP, HERE TO EVALUATE PATIENT. PER MIRANDA, WILL SUBMIT TO INSURANCE TODAY. WILL FOLLOW UP ACCORDINGLY.
[2019-07-13] MEDS: ATORVASTATIN CALCIUM 40 MG TABLET PO SCH (20:42)
--- NOTE | 2019-07-13 23:30 | NUR ---
WOUND CARE Lt heel ulcer cleansed with ns,medihoney applied,covered with vaseline gauze and 4x4 gauze,wound appears pinkish with yellow slough,measures approx 5x6 cm.pt tyrell well.Left foot Tma painted with betadine covered with 4x4 gauze,secured with kerlix and diana bandage.Wound apprears clean and dry well approximated.Pt tyrell procedure well.Dr Sánchez came and said to continue with current wound care.
[2019-07-14] MEDS: CEFTRIAXONE SODIUM 1 GM IVP SCH ×2 (03:10→19:21)
[2019-07-14 04:10] VITALS: BP 165/78
[2019-07-14] MEDS: INSULIN HUMULIN R 100 UNIT/ML 3ML SQ SCH ×4 (06:05→20:50)
[2019-07-14] MEDS: VANCOMYCIN 1GM+NS 250ML 250 ML IV SCH (06:13)
[2019-07-14] MEDS: INSULIN LISPRO 100 UNIT/ML 3ML SQ SCH ×3 (06:22→17:00)
[2019-07-14 07:44] VITALS: BP 180/75
[2019-07-14] MEDS: ENOXAPARIN SODIUM 30 MG/0.3 ML SQ SCH (10:00)
--- NOTE | 2019-07-14 10:00 | NUR ---
CM NOTE REQUEST FOR EMS TRANSFER FAXED AND RECEIVED, PENDING EMS AUTHORIZATION FOR TRANSPORTATION TO [facility] IF APPROVED, PENDING AUTHORIZATION ITSELF. STR MULTICULTURAL INTERNSHIP IN ROOM WITH PATIENT, STATES HE WILL CALL ME WHEN AUTHORIZATION RECEIVED.
[2019-07-14] MEDS: CLOPIDOGREL BISULFATE 75 MG TAB PO SCH (10:01)
[2019-07-14] MEDS: METOPROLOL SUCCINATE 50 MG TAB.SR.24H PO SCH (10:01)
[2019-07-14] MEDS: ASPIRIN 325 MG TABLET PO SCH (10:01)
[2019-07-14] MEDS: AMLODIPINE BESYLATE 2.5 MG TAB PO SCH (10:01)
[2019-07-14] MEDS: LISINOPRIL 10 MG TABLET PO SCH (10:02)
[2019-07-14] MEDS: INSULIN GLARGINE 100 UNITS/ML 10 ML VIAL SQ SCH (10:03)
[2019-07-14] MEDS: HONEY 1 APPL/ML TUBE TP SCH (10:03)
[2019-07-14 11:14] VITALS: BP 156/74
--- NOTE | 2019-07-14 14:20 | NUR ---
PT NOTE: PATIENT PRESENTS WITH IMPROVED TOLERANCE FOR PT TX TODAY VS YESTERDAY. PATIENT WAS ABLE TO PERFORM SCOOTING AT EOB /C B UE'S TO HOB AND BACK WITH MINIMAL ASSIST AND CUEING. PATIENT PRESENTS WITH IMPROVED UE STRENGTH NOTED BY ABILITY TO PERFORM SCOOTING AT BEDSIDE. PATIENT WILL BENEFIT FROM CONTINUED PT TX TO PROMOTE STRENGTHENING FOR SAFE AND INDEPENDENT TRANSFERS OOB /C SLIDING BOARD PRIOR TO D/C HOME. Addendum: 07/14/19 at 1436 by ALMA NAVARRO PT Amended: Links added.
[2019-07-14 15:40] VITALS: BP 175/70
[2019-07-14 19:12] VITALS: BP 149/73
[2019-07-14] MEDS: ATORVASTATIN CALCIUM 40 MG TABLET PO SCH (20:02)
--- NOTE | 2019-07-14 23:04 | NUR ---
MD Dr RESENDIZ is here to change dressing.
[2019-07-14 23:18] VITALS: BP 144/73
[2019-07-15] VITALS (7 sets, daily range): BP systolic 142–183; BP diastolic 65–103
[2019-07-15] MEDS: VANCOMYCIN 1GM+NS 250ML 250 ML IV SCH ×2 (00:08→19:43)
[2019-07-15] MEDS: CEFTRIAXONE SODIUM 1 GM IVP SCH ×2 (04:10→17:23)
[2019-07-15] MEDS: ACETAMINOPHEN 325 MG TAB PO PRN (04:11)
[2019-07-15] MEDS: CLONIDINE HCL 0.1 MG TABLET PO PRN (04:11)
--- NOTE | 2019-07-15 04:11 | NUR ---
BP Clonidine given for bp 183/103.
--- NOTE | 2019-07-15 05:21 | NUR ---
MED EFFECT Bp rechecked 142/74.
[2019-07-15] MEDS: INSULIN HUMULIN R 100 UNIT/ML 3ML SQ SCH ×4 (05:35→20:49)
[2019-07-15] MEDS: INSULIN LISPRO 100 UNIT/ML 3ML SQ SCH ×3 (06:55→17:00)
[2019-07-15] MEDS: HONEY 1 APPL/ML TUBE TP SCH (09:00)
[2019-07-15] MEDS: METOPROLOL SUCCINATE 50 MG TAB.SR.24H PO SCH (09:12)
[2019-07-15] MEDS: CLOPIDOGREL BISULFATE 75 MG TAB PO SCH (09:13)
[2019-07-15] MEDS: LISINOPRIL 10 MG TABLET PO SCH (09:13)
[2019-07-15] MEDS: ASPIRIN 325 MG TABLET PO SCH (09:13)
[2019-07-15] MEDS: AMLODIPINE BESYLATE 2.5 MG TAB PO SCH (09:13)
[2019-07-15] MEDS: ENOXAPARIN SODIUM 30 MG/0.3 ML SQ SCH (09:14)
[2019-07-15] MEDS: INSULIN GLARGINE 100 UNITS/ML 10 ML VIAL SQ SCH (09:20)
--- NOTE | 2019-07-15 10:14 | NUR ---
CM NOTE PER GWEN AT [facility], PENDING AUTHORIZATION FOR INPATIENT REHAB. WILL FOLLOW UP ACCORDINGLY.
--- NOTE | 2019-07-15 14:32 | NUR ---
PT NOTE: PATIENT DONNED AND DOFFED RLE PROSTHETIC LIMB WITH SBA AND WAS ABLE TO PERFORM STAND PIVOT TRANSFER FROM BED TO CHAIR MOD ASSISTX2 WITH NWB TO LLE. THIS IS A POSITIVE DEVELOPMENT, PATIENT WILL BENEFIT FROM CONTINUED PT TX TO FURTHER PROGRESS STRENGTH AND PROMOTE FUNCTIONAL INDEPENDENCE PRIOR TO D/C HOME. Addendum: 07/15/19 at 1540 by ALMA NAVARRO PT Amended: Links added.
--- NOTE | 2019-07-15 19:02 | NUR ---
VANCO TROUGH . FAX TO [facility], RESULT OF 17.2 PENDING, , [facility] .RESPOND
[2019-07-15] MEDS: ATORVASTATIN CALCIUM 40 MG TABLET PO SCH (20:43)
[2019-07-16 03:00] VITALS: BP 155/98
[2019-07-16] MEDS: CEFTRIAXONE SODIUM 1 GM IVP SCH ×2 (04:47→17:23)
[2019-07-16 06:03] LABS: HEMATOCRIT 29.5 % (36-48); MEAN CORPUSCULAR HEMOGLOBIN 26.6 pg (27.0-33.0); MEAN CORPUSCULAR HGB CONC 30.8 g/dL (32.0-36.0); MEAN CORPUSCULAR VOLUME 86.3 fL (79-99); PLATELET COUNT (AUTO) 328 K/uL (130-400); RED BLOOD CELL COUNT(AUTO) 3.42 MIL/uL (4.00-5.50); RED CELL DISTRIBUTION WIDTH 13.5 % (11.0-15.5); WHITE BLOOD COUNT (AUTO) 10.7 K/uL (4.8-10.8)
[2019-07-16 06:09] LABS: POTASSIUM 3.6 mmol/L (3.5-5.1)
[2019-07-16] MEDS: INSULIN HUMULIN R 100 UNIT/ML 3ML SQ SCH ×4 (06:26→21:00)
[2019-07-16] MEDS: INSULIN LISPRO 100 UNIT/ML 3ML SQ SCH ×3 (06:42→17:27)
[2019-07-16 07:55] VITALS: BP 132/60
[2019-07-16] MEDS: LISINOPRIL 10 MG TABLET PO SCH (07:57)
[2019-07-16] MEDS: AMLODIPINE BESYLATE 2.5 MG TAB PO SCH (07:57)
[2019-07-16] MEDS: CLOPIDOGREL BISULFATE 75 MG TAB PO SCH (07:57)
[2019-07-16] MEDS: ASPIRIN 325 MG TABLET PO SCH (07:57)
[2019-07-16] MEDS: METOPROLOL SUCCINATE 50 MG TAB.SR.24H PO SCH (07:58)
[2019-07-16] MEDS: ENOXAPARIN SODIUM 30 MG/0.3 ML SQ SCH (07:58)
--- NOTE | 2019-07-16 08:00 | NUR ---
PT AAO X3 REVIEW PLAN OF CARE, LIMITED EYE SIGHT CALL LIGHT IN REACH,, OFFER NO C/O OF PAIN , PER PT . INFORMATION . DR RESENDIZ CAME IN LAST NITE AND CHANGED HER DRSG . . REVIEW THAT WOUND , SURGERY SITE PICTURE NEED TO BE DONE , WHEN HE COME IN .TO PUT THE CALL LIGHT FOR ASSESSMENT . OF INCISIONAL SITE PICTURES , LEFT GREAT TOE AND PORTIO OF HER METATARAL AND DEBRIDEMENT OF HER LT HEEL HX OF RIGHT LEG BELOW KNEE AMPUTATION
[2019-07-16] MEDS: INSULIN GLARGINE 100 UNITS/ML 10 ML VIAL SQ SCH (08:14)
[2019-07-16] MEDS: HONEY 1 APPL/ML TUBE TP SCH (09:00)
[2019-07-16 11:15] VITALS: BP 171/71
--- NOTE | 2019-07-16 11:55 | NUR ---
Nutrition Follow-up: Pt. on 60gm CCD Gen. Heart Healthy diet, 30ml ProMod BID. Pt. reports good p.o. intake. Labs reviewed(Alb 2.5, BG 123). LBM: 07/15/2019. SR-17, elastic. Recommendations: 1) Continue current diet. 2) Continue to monitor pt's nutritional status. 3) Consult RD as nutrition concerns arise. Addendum: 07/16/19 at [address] Amended: Links added.
[2019-07-16] MEDS: VANCOMYCIN 1GM+NS 250ML 250 ML IV SCH (12:19)
[2019-07-16] MEDS: CLONIDINE HCL 0.1 MG TABLET PO PRN (12:22)
[2019-07-16 16:35] VITALS: BP 144/74
[2019-07-16 20:00] VITALS: BP 148/75
[2019-07-16] MEDS: ATORVASTATIN CALCIUM 40 MG TABLET PO SCH (20:15)
[2019-07-17] VITALS (9 sets, daily range): BP systolic 130–183; BP diastolic 58–83
[2019-07-17] MEDS: CEFTRIAXONE SODIUM 1 GM IVP SCH ×2 (03:59→16:37)
[2019-07-17] MEDS: ACETAMINOPHEN 325 MG TAB PO PRN (03:59)
[2019-07-17] MEDS: CLONIDINE HCL 0.1 MG TABLET PO PRN (04:15)
[2019-07-17] MEDS: INSULIN HUMULIN R 100 UNIT/ML 3ML SQ SCH ×4 (05:37→19:51)
[2019-07-17] MEDS: VANCOMYCIN 1GM+NS 250ML 250 ML IV SCH (06:30)
[2019-07-17] MEDS: INSULIN LISPRO 100 UNIT/ML 3ML SQ SCH ×3 (06:33→16:53)
[2019-07-17] MEDS: HONEY 1 APPL/ML TUBE TP SCH (09:49)
[2019-07-17] MEDS: ENOXAPARIN SODIUM 30 MG/0.3 ML SQ SCH (09:51)
[2019-07-17] MEDS: INSULIN GLARGINE 100 UNITS/ML 10 ML VIAL SQ SCH (09:52)
[2019-07-17] MEDS: METOPROLOL SUCCINATE 50 MG TAB.SR.24H PO SCH (09:52)
[2019-07-17] MEDS: CLOPIDOGREL BISULFATE 75 MG TAB PO SCH (09:53)
[2019-07-17] MEDS: LISINOPRIL 10 MG TABLET PO SCH (09:53)
[2019-07-17] MEDS: AMLODIPINE BESYLATE 2.5 MG TAB PO SCH (09:53)
[2019-07-17] MEDS: ASPIRIN 325 MG TABLET PO SCH (09:53)
--- NOTE | 2019-07-17 18:30 | NUR ---
CM NOTE MEET WITH PATIENT IN ROOM. AMY VERBAL CONSENT FOR HH WITHIN INSURANCE NETWORK. DR. VIEYRA AND DR. ROMAN MADE AWARE OF PATIENT UNABLE TO SEEK SNF OR INPATIENT REHAB DUE TO LACK OF INSURANCE DAYS LEFT FOR THOSE SERVICES. PATIENT WOULD HAVE TO DC HOME WITH HH. PENDING DR. VIEYRA RECOMMENDATIONS FOR AT HOME ANTIBIOTICS. PATIENT CURRENTLY ON ROCEPHIN IV AND VANCO IV. PER MD, OK TO CONVERT THOSE MEDICATIONS TO PO BUT UNSURE OF WHEN, PENDING DR. VIEYRA CALL BACK. PCP, SHORTY BARRETT [facility] OFFICE CALLED TO SEE IF OK FOR HH AND IF ABLE TO OVERSEE, OFFICE CLOSED FOR THE DAY, UNABLE TO LEAVE MESSAGE. DR. ROMAN MADE AWARE OF PENDING HH PLAN. PER DR. ROMAN AND DR. VIEYRA, UNABLE TO OVERSEE HH.
[2019-07-17] MEDS: ATORVASTATIN CALCIUM 40 MG TABLET PO SCH (20:40)
[2019-07-18] MEDS: VANCOMYCIN 1GM+NS 250ML 250 ML IV SCH (00:07)
[2019-07-18 03:53] VITALS: BP 165/72
[2019-07-18] MEDS: CEFTRIAXONE SODIUM 1 GM IVP SCH (04:55)
[2019-07-18] MEDS: INSULIN HUMULIN R 100 UNIT/ML 3ML SQ SCH (06:27)
[2019-07-18] MEDS: INSULIN LISPRO 100 UNIT/ML 3ML SQ SCH (06:48)
[2019-07-18 07:55] VITALS: BP 161/73
[2019-07-18] MEDS: ASPIRIN 325 MG TABLET PO SCH (09:07)
[2019-07-18] MEDS: CLOPIDOGREL BISULFATE 75 MG TAB PO SCH (09:07)
[2019-07-18] MEDS: AMLODIPINE BESYLATE 2.5 MG TAB PO SCH (09:07)
[2019-07-18] MEDS: METOPROLOL SUCCINATE 50 MG TAB.SR.24H PO SCH (09:07)
[2019-07-18] MEDS: LISINOPRIL 10 MG TABLET PO SCH (09:07)
[2019-07-18] MEDS: ENOXAPARIN SODIUM 30 MG/0.3 ML SQ SCH (09:08)
[2019-07-18] MEDS: HONEY 1 APPL/ML TUBE TP SCH (09:09)
[2019-07-18] MEDS: INSULIN GLARGINE 100 UNITS/ML 10 ML VIAL SQ SCH (09:09)
[2019-07-18] MEDS ORDERED: INSU100V SQ (11:39)
[2019-07-18] MEDS ORDERED: INSLAN SQ (11:39)
[2019-07-18 11:40] VITALS: BP 163/72
--- NOTE | 2019-07-18 19:08 | NUR ---
DISCHARGE OPTIONS DISCUSSED. DR. RESENDIZ CONTACT BY PRIMARY PAMELLA COTE RE; FAMILY DOING OWN DRESSINGS AND FOLLOWIN IN CLINIC NEXT WEEK; DR. RESENDIZ FINE WITH FAMILY BEING TAUGHT DRESSING CHANGES ARE PREVIOUSLY DESCRIBED IN THE NOTES. PAMELLA COTE TO TEACH AND TO SEND PT S FMILY HOME WITH SUPPLIES UNTIL SEEN BY ASTRID; HOME HEALTH CAN BE CONTACTED SATURDAY BY [facility] OFFICE IF NEEDED ALL IN FAVOR INCLUDING PATIENT/FAMILY, SEE DISCHARGE INSTRUCTIONS
--- NOTE | 2019-07-18 19:25 | NUR ---
PER DR. RESENDIZ OK TO EDUCATED AND TEACH PT AND FAMILY HOW TO PERFORM HER OWN DRESSING CHANGE. PT WILL FOLLOW UP WIT DR. RESENDIZ IN OFFICE NEXT WEEK, HOME HEALTH CAN BE CONTACTED SATURDAY BY DR. ESTEBAN OFFICE IF NEEDED. PT WAS SEND HOME WITH SUPPLIES TO DO WOUND CARE AND DRESSING CHANGE UNTIL APPOINTMENT.
== END 2019-07-18 14:35 | disposition home or self-care (01) | DRG 305 ==
LOC: EDH 12:44 → EDHIP 12:45 → 3BH 14:00
PROVIDERS: ADMIT Family Medicine; ATTEND Family Medicine
PROC: 0JBR0ZZ Excision of Left Foot Subcutaneous Tissue and Fascia, Open Approach (ICD-10-PCS; 2019-07-01)
PROC: 0LBP0ZZ Excision of Left Lower Leg Tendon, Open Approach (ICD-10-PCS; 2019-07-01)
PROC: 0Y6N0Z9 Detachment at Left Foot, Partial 1st Ray, Open Approach (ICD-10-PCS; principal; 2019-07-01 18:04)
PROC: 0QBP0ZZ Excision of Left Metatarsal, Open Approach (ICD-10-PCS; 2019-07-01 18:04)
DX: E11.52 Type 2 diabetes mellitus with diabetic peripheral angiopathy with gangrene (principal); I96 Gangrene, not elsewhere classified; E11.621 Type 2 diabetes mellitus with foot ulcer; M86.10 Other acute osteomyelitis, unspecified site; L03.116 Cellulitis of left lower limb; B95.2 Enterococcus as the cause of diseases classified elsewhere; L97.429 Non-pressure chronic ulcer of left heel and midfoot with unspecified severity; D64.9 Anemia, unspecified; L02.612 Cutaneous abscess of left foot; E78.5 Hyperlipidemia, unspecified; E66.9 Obesity, unspecified; I10 Essential (primary) hypertension; I25.10 Atherosclerotic heart disease of native coronary artery without angina pectoris; E11.69 Type 2 diabetes mellitus with other specified complication; Z89.511 Acquired absence of right leg below knee; Z95.1 Presence of aortocoronary bypass graft; Z80.9 Family history of malignant neoplasm, unspecified; Z82.3 Family history of stroke; Z82.49 Family history of ischemic heart disease and other diseases of the circulatory system; Z83.3 Family history of diabetes mellitus; Z91.19 Patient's noncompliance with other medical treatment and regimen; Z68.29 Body mass index [BMI] 29.0-29.9, adult
CPT/HCPCS: 36415; 71045; 73630; 73718; 80048; 80053; 80061; 80202; 82948; 83036; 83735; 84100; 84145; 85025; 85027; 85610; 85651; 85730; 86140; 87070; 87076; 87077; 87186; 87205; 88305; 90715; 92610; 93005; 93925; 97039; G0378; J0696; J1650; J1815; J2250; J2543; J2704; J3010; J3370; J3490; J7030